=== PATIENT | female | born 1960 | race Caucasian/White ===

== ENCOUNTER 2020-09-15 09:53 | Day surgery (SDC) | payer MEDICAID ==
[~2020-09-15] VITALS: Ht 149.9 cm; Wt 55.5 kg
[~2020-09-15 09:53] MED LIST: SODIUM CHLORIDE 0.9% 1,000 ML IV ONE; SODIUM CHLORIDE 0.9% 1,000 ML ONE
[2020-09-15] MEDS ORDERED: PROPOFOL 1% 20 ML VIAL IVP ONE (09:54)
[2020-09-15] MEDS ORDERED: LIDOCAINE/PF 2% 5 ML VIAL IM ONE (09:54)
[2020-09-15 10:27] LABS: COVID AG,FIA SOURCE NASOPHARYNGEAL
[2020-09-15] MEDS ORDERED: METF-960 PO (10:36)
[2020-09-15] MEDS ORDERED: ATOR40TA28 PO (10:36)
[2020-09-15 10:57] LABS: GLUCOMETER DEV NAME(LOC) SDS.; GLUCOSE,POINT OF CARE 119 MG/DL (70-110)
[2020-09-15] MEDS ORDERED: OXYGEN THERAPY IH SCH (20:00)
== END 2020-09-15 12:55 | disposition home or self-care (01) ==
LOC: SURGERY 09:53
PROVIDERS: ATTEND Specialist
DX: K63.5 Polyp of colon (principal); K64.0 First degree hemorrhoids; E11.9 Type 2 diabetes mellitus without complications; I10 Essential (primary) hypertension; F31.9 Bipolar disorder, unspecified; J44.9 Chronic obstructive pulmonary disease, unspecified; K21.9 Gastro-esophageal reflux disease without esophagitis; F43.10 Post-traumatic stress disorder, unspecified; Z98.890 Other specified postprocedural states; Z82.49 Family history of ischemic heart disease and other diseases of the circulatory system; Z83.3 Family history of diabetes mellitus; Z79.899 Other long term (current) drug therapy
CPT/HCPCS: 45380; 82962; 87426; 88305; C1769; C9803; J2704; J3490; J7030